=== PATIENT | female | born 1995 | race Hispanic/Latino ===

== ENCOUNTER 2017-01-01 20:30 | Observation (INO) | payer SELFPAY ==
[2017-01-01 20:43] VITALS: BMI 23.4
[2017-01-01] MEDS ORDERED: Sodium Chloride 0.9% 1,000 ML IV STA (20:48)
[2017-01-01 20:58] VITALS: TEMP 97.6
[2017-01-01 21:18] LABS: ADD MANUAL DIFF? NO
--- NOTE | 2017-01-01 21:24 | ED PDOC ---
Arrival/HPI <Adal Johns - Last Filed: 01/01/17 22:17> - General Historian: Patient - History of Present Illness Time/Duration: 4-6 hours (15:00) Symptom Onset: Gradual Symptom Course: Unchanged Activities at Onset: Rest, Light Context: Home <Amber Mayer - Last Filed: 01/02/17 01:34> - General Chief Complaint: GI Problem Time Seen by Provider: 01/01/17 20:47 - History of Present Illness Narrative History of Present Illness (Text): 01/01/17 21:18 21 year old female who presents to the ED accompanied by friends complaining of vomiting after drinking alcohol today. Patient states she had 1 1/2 Four [place] since 15:00 today. Patient states she developed nausea and multiple episodes of vomiting after drinking alcohol. pt states the vomit was brown colored so she was worried it was blood. Both she and her friends deny seeing any bishnu blood. Pt c/o slight LUQ abd pain. Patient denies any fever, chills, chest pain, shortness of breath, diarrhea, urinary symptoms, back pain, neck pain, headache , dizziness, depression, or any other complaints. (Amber Mayer) Past Medical History - Provider Review Nursing Documentation Reviewed: Yes - Travel History Have you recently traveled outside [place] w/in the past 3 mons?: No - Infectious Disease Hx of Infectious Diseases: None - Neurological Hx Multiple Sclerosis: Yes - Psychiatric Hx Substance Use: No - Anesthesia Hx Anesthesia: No <Amber Mayer - Last Filed: 01/02/17 01:34> Family/Social History - Physician Review Nursing Documentation Reviewed: Yes Family/Social History: No Known Family HX Smoking Status: Never Smoked Hx Alcohol Use: Yes Frequency of alcohol use: Socially Hx Substance Use: No <Amber Mayer - Last Filed: 01/02/17 01:34> Allergies/Home Meds <Adal Johns - Last Filed: 01/01/17 22:17> <Amber Mayer - Last Filed: 01/02/17 01:34> Allergies/Adverse Reactions: Allergies bee venom protein (honey bee) Allergy (Verified 01/01/17 20:43) RASH white dye Allergy (Uncoded 01/01/17 20:43) RASH Review of Systems - Physician Review All systems were reviewed & negative as marked: Yes - Review of Systems Constitutional: Normal. absent: Fevers Eyes: Normal ENT: Normal Respiratory: Normal. absent: SOB, Cough Cardiovascular: Normal. absent: Chest Pain Gastrointestinal: Abdominal Pain, Nausea, Vomiting. absent: Diarrhea Genitourinary Female: Normal. absent: Dysuria, Frequency, Hematuria, Urine Output Changes Musculoskeletal: Normal. absent: Back Pain, Neck Pain Skin: Normal. absent: Rash Neurological: Normal. absent: Headache, Dizziness Endocrine: Normal Hemo/Lymphatic: Normal Psychiatric: Normal. absent: Depression, Suicidal Ideation <Amber Mayer - Last Filed: 01/02/17 01:34> Physical Exam Vital Signs Reviewed: Yes Temperature: Afebrile Blood Pressure: Normal Pulse: Regular Respiratory Rate: Normal Appearance: Positive for: Well-Appearing, Comfortable Pain Distress: None Mental Status: Positive for: Alert and Oriented X 3 - Systems Exam Head: Present: Atraumatic, Normocephalic Pupils: Present: PERRL Extroacular Muscles: Present: EOMI Conjunctiva: Present: Normal Mouth: Present: Moist Mucous Membranes Neck: Present: Normal Range of Motion Respiratory/Chest: Present: Clear to Auscultation, Good Air Exchange. No: Respiratory Distress, Accessory Muscle Use Cardiovascular: Present: Regular Rate and Rhythm, Normal S1, S2. No: Murmurs Abdomen: Present: Tenderness (minimal LUQ tenderness, no epigastric tenderness) , Normal Bowel Sounds. No: Distention, Peritoneal Signs Upper Extremity: Present: Normal Inspection. No: Cyanosis, Edema Lower Extremity: Present: Normal Inspection. No: Edema Neurological: Present: GCS=15, Speech Normal Skin: Present: Warm, Dry, Normal Color. No: Rashes Psychiatric: Present: Alert, Oriented x 3, Normal Insight, Normal Concentration , Intoxicated <Amber Mayer - Last Filed: 01/02/17 01:34> Vital Signs Temp Pulse Resp BP Pulse Ox 01/02/17 00:35 85 17 115/56 L 99 01/01/17 20:54 97.6 F 80 18 121/85 100 Medical Decision Making <Adal Johns - Last Filed: 01/01/17 22:17> - Lab Interpretations I have reviewed the lab results: Yes <Amber Mayer - Last Filed: 01/02/17 01:34> ED Course and Treatment: 01/01/17 21:18 Impression: 21 y/o female c/o LUQ pain, nausea, and vomiting since 15:00. Plan: -- CXR -- Labs, alcohol level, amylase, lipase -- UA -- IV fluids -- Protonix -- Reassess and disposition --will observe patient for sobriety. cbc;wnl cmp; wnl amylase; wnl lipase; wnl etoh; 158 cxr; no infiltrate and no effusion no pneumothorax no pneumomediastinum 01/02/17 00:14 pt resting comfortably; stable vitals. no distress. 01/02/17 01:29 Patient feeling better. Vital signs are stable. She is nontoxic well-appearing no distress. Speaking in full sentences. The abdomen is nontender. We will discharge the patient home and to the care of her roommate lea mei. Patient verbalizes understanding of discharge instructions and need for immediate followup. all aspects of this case were discussed the attending of record. Impression: Alcohol intoxication, vomiting Increase fluids Follow-up with primary care physician within the next 2 days Return if symptoms worsen or persist or if new concerning symptoms develop (Amber Mayer) - Medication Orders Current Medication Orders: Discontinued Medications Sodium Chloride (Sodium Chloride 0.9%) 1,000 mls @ 999 mls/hr IV .Q1H1M STA Stop: 01/01/17 21:48 Last Admin: 01/01/17 21:15 Dose: 999 MLS/HR eMAR Start Stop Document 01/01/17 21:15 MR (Rec: 01/01/17 21:16 MR [id number]) Intravenous Solution Start Date 01/01/17 Start Time 21:15 End Date 01/01/17 End time 22:15 Total Infusion Time 60 Ondansetron HCl (Zofran Inj) 4 mg IVP STAT STA Stop: 01/02/17 01:23 Pantoprazole Sodium (Protonix Inj) 40 mg IVP STAT STA Stop: 01/01/17 21:19 Last Admin: 01/01/17 21:35 Dose: 40 MG IVP Administration Document 01/01/17 21:35 MR (Rec: 01/01/17 21:35 MR [id number]) Charges for Administration # of IVP Administrations 1 ED OBSERVATION <Nat,Adal - Last Filed: 01/01/17 22:17> Discharge: Yes Date of observation admission: 01/01/17 Time of observation admission: 20:50 <Amber Mayer - Last Filed: 01/02/17 01:34> - Observation admission statement Patient is being placed in observation because:: alcohol intoxication/vomiting (Amber Mayer) - Goals of Observation Goals of observation are:: sobriety/improvement in symptoms (Amber Mayer) - Progress Note Progress Note: 01/02/17 22:45 sleeping in er; no distress 01/02/17 01:28 pt feeling much better; vitals stable abdomen non tender. will d/c patient home in the care of her roommate. (Amber Mayer) - PA / OPERATIONS/DISPATCH / Resident Statement MD/DO has reviewed & agrees with the documentation as recorded. <NatAdal - Last Filed: 01/01/17 22:17> - Scribe Statement The provider has reviewed the documentation as recorded by the Scribe <Amber Mayer - Last Filed: 01/02/17 01:34> - Scribe Statement Yoanna Aviles All medical record entries made by the Scribe were at my direction and personally dictated by me. I have reviewed the chart and agree that the record accurately reflects my personal performance of the history, physical exam, medical decision making, and the department course for this patient. I have also personally directed, reviewed, and agree with the discharge instructions and disposition. (Amber Mayer) Disposition/Present on Arrival <Adal Johns - Last Filed: 01/01/17 22:17> - Present on Arrival Any Indicators Present on Arrival: No History of DVT/PE: No History of Uncontrolled Diabetes: No Urinary Catheter: No History of Decub. Ulcer: No History Surgical Site Infection Following: None - Disposition Have Diagnosis and Disposition been Completed?: Yes Disposition Time: 01:30 Patient Plan: Discharge <Amber Mayer - Last Filed: 01/02/17 01:34> - Disposition Diagnosis: Alcohol intoxication, Nausea & vomiting Disposition: HOME/ ROUTINE Patient Problems: Current Active Problems Problem Status Diagnosed Alcohol intoxication Acute Nausea & vomiting Acute Condition: GOOD
[2017-01-01 21:46] LABS: ALB/GLOB RATIO 1.3 (1.1-1.8); ALKALINE PHOSPHATASE 56 U/L (38-133); ALT/SGPT 34 U/L (7-56); AMYLASE 66 U/L (35-125); AST/SGOT 37 U/L (15-39); BILIRUBIN,TOTAL 0.7 mg/dL (0.2-1.3); BLOOD UREA NITROGEN 14 mg/dL (7-21); CALCIUM 8.8 mg/dL (8.4-10.5); CARBON DIOXIDE 25 mmol/L (21-33); CHLORIDE 102 mmol/L (98-107); GFR AFRICAN-AMERICAN > 60; GLUCOSE,RANDOM 117 mg/dL (70-110); LIPASE 89 U/L (23-300); POTASSIUM 3.3 mmol/L (3.6-5.0); SODIUM 141 mmol/L (132-148); TOTAL PROTEIN 7.9 g/dL (5.8-8.3)
[2017-01-01 21:48] LABS: BASO # 0.01 K/mm3 (0.0-2.0); BASO % 0.2 % (0.0-3.0); GRAN # 5.17 (1.4-6.5); GRAN % 80.6 % (50.0-68.0); HEMATOCRIT 36.9 % (36.0-48.0); LYMPH # 0.9 (1.2-3.4); LYMPH % 13.3 % (22.0-35.0); MEAN CELL VOLUME 82.7 fL (80.0-105.0); MEAN CORPUSCULAR HGB CONC 33.9 g/dl (31.0-37.0); MEAN PLATELET VOLUME 8.6 fl (7.0-11.0); MONO # 0.4 (0.1-0.6); MONO % 5.9 % (1.0-6.0); PLATELET COUNT 320 10^3/uL (120.0-450.0); RED CELL DISTRIBUTION WIDTH 14.9 % (11.5-14.5); URINE BILIRUBIN NEGATIVE (NEGATIVE); URINE BLOOD NEGATIVE (NEGATIVE); URINE GLUCOSE (UA) NEGATIVE (NEGATIVE); URINE KETONE NEGATIVE (NEGATIVE); URINE LEUKOCYTE ESTERASE NEGATIVE Leu/uL (NEGATIVE); URINE PROTEIN NEGATIVE mg/dL (<30 mg/dL); URINE UROBILINOGEN 0.2 E.U./dL (<1 E.U./dL); WHITE BLOOD COUNT 6.4 10^3/ul (4.5-11.0)
[2017-01-01 21:50] LABS: URINE APPEARANCE CLEAR (CLEAR); URINE COLOR LIGHT YELLOW (YELLOW)
[2017-01-02 01:47] VITALS: BP 102/64; PULSE 80; RESP 16; O2SAT 98
--- NOTE | 2017-01-02 08:05 | RAD ---
HISTORY: LUQ tenderness, vomiting COMPARISON: No prior. FINDINGS: LUNGS: The lungs are well inflated and clear. PLEURA: No significant pleural effusion identified, no pneumothorax apparent. CARDIOVASCULAR: Normal. OSSEOUS STRUCTURES: No significant abnormalities. VISUALIZED UPPER ABDOMEN: Normal. OTHER FINDINGS: None. IMPRESSION: No active pulmonary disease.
== END 2017-01-02 01:29 | disposition home or self-care (01) ==
LOC: ED 20:30 → EROBSV 20:48
PROVIDERS: ADMIT Emergency Medicine; ATTEND Emergency Medicine
DX: R11.2 Nausea with vomiting, unspecified (principal); F10.129 Alcohol abuse with intoxication, unspecified; Y90.6 Blood alcohol level of 120-199 mg/100 ml
CPT/HCPCS: 71010; 80053; 81003; 82150; 82948; 83690; 84703; 85025; 96361; 96374; 99285; C9113; G0378; G0480; J2405; J7040